=== PATIENT | female | born 1995 | race Caucasian/White ===

== ENCOUNTER 2024-11-25 06:30 | Day surgery (SDC) | payer OTHER, SELFPAY ==
[2024-11-25] VITALS (10 sets, daily range): BP systolic 82–108; BP diastolic 45–79; BMI 27.3
[2024-11-25 10:24] LABS: HCG, Urine Qualitative Screen Negative
[2024-11-25] MEDS: VANCOCIN 200 IV (10:24)
[2024-11-25] MEDS: NORMOSOL-R/PLASMALYTE-A 1000 IV (10:27)
== END 2024-11-25 13:00 | disposition home or self-care (01) ==
LOC: SDS 06:30
PROVIDERS: ATTENDING PHYSICIAN Urology
PROC: 0JH73BZ Insertion of Single Array Stimulator Generator into Back Subcutaneous Tissue and Fascia, Percutaneous Approach (ICD-10-PCS; 2024-11-25)
PROC: 01HY3MZ Insertion of Neurostimulator Lead into Peripheral Nerve, Percutaneous Approach (ICD-10-PCS; 2024-11-25)
DX: N39.41 Urge incontinence (principal)
CPT/HCPCS: 64590; 64561; 72170; 76000; 81025; C1767; C1778; C1787; L8681